=== PATIENT | female | born 1975 | race Caucasian/White ===

== ENCOUNTER 2023-01-22 07:07 | Emergency (ER) | payer OTHER ==
[2023-01-22 07:20] VITALS: BP 125/89; PULSE 85; RESP 18; TEMP 97.8; BMI 25.2
[2023-01-22] MEDS ORDERED: IBUPROFEN 600 MG TABLET (FP) PO ONE ×2 (07:56→07:57)
== END 2023-01-22 07:59 | disposition home or self-care (01) ==
LOC: FER 07:07
DX: R05.1 Acute cough (principal); M79.10 Myalgia, unspecified site; Z20.822 Contact with and (suspected) exposure to COVID-19
CPT/HCPCS: 0241U-QW; 99283-25